=== PATIENT | female | born 1945 | race Caucasian/White ===

== ENCOUNTER 2022-07-29 12:50 | Emergency (ER) | payer MEDICARE, BC ==
[2022-07-29] MEDS ORDERED: AMLODIPINE BESYL5 MG PO ×2 (13:22→14:39)
[2022-07-29] MEDS ORDERED: METFORMIN HYD1000 MG PO (13:22)
[2022-07-29 13:23] LABS: BASO # 0.01 K/mm3 (0.02-0.10); EOS # 0.02 K/mm3 (0.04-0.40); EOS % 0.4 % (1.0-5.0); HEMATOCRIT 39.5 % (37.0-47.0); HEMOGLOBIN 13.1 g/dL (12.5-16.0); LYMPH# 1.29 K/mm3 (1.50-4.00); MEAN CELL VOLUME 97 fl (78-100); MEAN CORPUSCULAR HEMOGLOBIN 32 pg (27-31); MEAN CORPUSCULAR HGB CONC 33 g/dL (33-37); MEAN PLATELET VOLUME 10.3 fl (7.4-10.4); MONO # 0.37 K/mm3 (0.20-0.80); NEU # 2.96 K/mm3 (1.40-6.50); PLATELET COUNT 239 K/mm3 (130-400); RED BLOOD COUNT 4.06 M/mm3 (4.10-5.30); WHITE BLOOD COUNT 4.7 K/mm3 (4.8-10.8)
[2022-07-29] MEDS ORDERED: CRESTOR20 MG PO ×2 (13:23→14:39)
[2022-07-29] MEDS ORDERED: ZESTRIL5 M1 PO ×2 (13:23→14:39)
[2022-07-29] MEDS ORDERED: ASPIRIN E.C. 8181 MG (13:24)
[2022-07-29] MEDS ORDERED: COREG 6.256.25 MG/TA PO ×2 (13:24→14:39)
[2022-07-29] MEDS ORDERED: AMIODARONE200 MG PO ×2 (13:24→14:39)
[2022-07-29] MEDS ORDERED: CO Q-10400 MG PO (13:25)
[2022-07-29] MEDS ORDERED: DECARA625 MCG PO (13:25)
[2022-07-29 13:28] LABS: ALBUMIN 3.8 g/dL (3.4-4.8); POTASSIUM 4.7 mmol/L (3.5-5.1); SODIUM 141 mmol/L (136-145)
[2022-07-29 13:30] LABS: CALCIUM 10.2 mg/dL (8.3-10.5)
[2022-07-29 13:31] LABS: GLUCOSE 115 mg/dL (65-105); TOTAL PROTEIN 6.6 g/dL (6.2-8.1)
[2022-07-29 13:32] LABS: CARBON DIOXIDE 22 mmol/L (23-31)
[2022-07-29 13:33] LABS: TOTAL BILIRUBIN 0.5 mg/dL (0.2-1.2)
[2022-07-29 13:36] LABS: AST-SGOT 9 U/L (5-34)
[2022-07-29 13:37] LABS: ALT/SGPT 8 U/L (0-55)
[2022-07-29 13:48] LABS: TROPONIN-I < 0.030 ng/mL (<0.030)
[2022-07-29] MEDS ORDERED: ZOFRAN ODT4 MG PO (14:33)
[2022-07-29] MEDS ORDERED: SINGULAIR PO (14:39)
[2022-07-29] MEDS ORDERED: GLUCOPHAGE PO (14:39)
[2022-07-29] MEDS ORDERED: ISOSORBIDE MON120 MG PO (14:39)
[2022-07-29 14:53] VITALS: BP 101/56
== END 2022-07-29 14:57 | disposition home or self-care (01) ==
LOC: ED 12:50
PROVIDERS: Nurse Practitioner
DX: R19.7 Diarrhea, unspecified (principal); R11.10 Vomiting, unspecified